=== PATIENT | male | born 1975 | race American Indian/Alaskan Native ===

== ENCOUNTER 2019-09-06 21:31 | Emergency (ER) | payer SELFPAY ==
[2019-09-06] MEDS ORDERED: ACETAMINOPHEN 325 MG/10.15 ML ORAL LIQD UNIT DOSE PO ONE (22:53)
[2019-09-06 23:26] LABS: Basophils # (Auto) 0.1 K/mm3 (0.0-0.1); Basophils % (Auto) 0.5 % (0.0-1.8); Eosinophils # (Auto) 0.1 K/mm3 (0.0-0.4); Eosinophils % (Auto) 1.3 % (0.0-4.3); Hematocrit 46.4 % (35.5-45.6); Hemoglobin 15.2 gm/dl (11.8-15.2); Lymphocytes # (Auto) 0.8 K/mm3 (1.2-5.4); Lymphocytes % (Auto) 7.8 % (13.4-35.0); Mean Corpuscular HGB Conc 33 % (32-34); Mean Corpuscular Volume 86 fl (84-94); Monocytes # (Auto) 1.1 K/mm3 (0.0-0.8); Monocytes % (Auto) 10.8 % (0.0-7.3); Red Blood Count 5.38 M/mm3 (3.65-5.03); Red Cell Distribution Width 17.1 % (13.2-15.2)
[2019-09-06 23:38] LABS: BUN/Creatinine Ratio 8; Blood Urea Nitrogen 9 mg/dL (9-20); Calcium 9.3 mg/dL (8.4-10.2); Hemolysis Index 10
[2019-09-07] MEDS ORDERED: KETOROLAC 30 MG/1 ML INJ IV ONE (00:48)
[2019-09-07 01:01] LABS: Platelet Count 124 K/mm3 (140-440)
--- NOTE | 2019-09-07 01:22 | Cat Scan Report ---
NECK CT 09/07/2019 HISTORY: Difficulty swallowing. Neck swelling. FINDINGS: Contrast enhanced CT images of the soft tissues of the neck were obtained. Images are evalu ated in the axial, coronal, and sagittal planes. There is no evidence of mucosal and lymphoid hyperplasia involving the tonsils, right greater than le ft, and mucosal surfaces of the posterior oropharynx. There is no definite evidence of fluid collecti on or abscess. Moderate thickening of the epiglottis is present. There is no evidence of airway compromise. There is a normal CT appearance to the parotid and submandibular gland region. the thyroid gland is u nremarkable. There is no definite evidence of abnormal adenopathy. There is some lucency along the alveolar ridge of the anterior right mandible, presumably related to prior dental pathology. IMPRESSION: 1. Mucosal thickening, including some thickening of the epiglottis. Tonsillar lymphoid hyperplasia. 2. No evidence of abscess. All CT scans at this location are performed using dose reduction to ALARA by means of automated expos ure control. Signer Name: Toni Diaz MD Signed: 09/07/2019 1:18 AM Workstation Name: [id number]
[2019-09-07] MEDS ORDERED: AMPICILLIN/SULBACTA 3GM/100ML 3 GM/100 ML BAG IV ONE (01:32)
--- NOTE | 2019-09-07 01:37 | Emergency Department Report ---
ED ENT HPI - General Chief complaint: Sore Throat Stated complaint: THROAT PAIN Time Seen by Provider: 09/07/19 00:42 Source: patient Mode of arrival: Ambulatory Limitations: No Limitations - History of Present Illness Initial comments: 44-year-old male with no past medical history presents to the hospital complaining of sore throat that started about 5 PM. Patient was feeling diaphoretic and presents with a fever 101.3. Patient complains of pain with swallowing and a tender lymph node to the right side of his neck. Patient is able to swallow his secretions and denies shortness of breath or difficulty breathing. - Related Data Allergies Allergy/AdvReac Type Severity Reaction Status Date / Time No Known Allergies Allergy Verified 09/06/19 21:34 ED Dental HPI - General Chief complaint: Sore Throat Stated complaint: THROAT PAIN Time Seen by Provider: 09/07/19 00:42 Source: patient Mode of arrival: Ambulatory Limitations: No Limitations - Related Data Allergies Allergy/AdvReac Type Severity Reaction Status Date / Time No Known Allergies Allergy Verified 09/06/19 21:34 ED Review of Systems ROS: Stated complaint: THROAT PAIN Other details as noted in HPI Comment: All other systems reviewed and negative ED Past Medical Hx - Past Medical History Previous Medical History?: No - Surgical History Additional Surgical History: hernia repair - Social History Smoking Status: Current Every Day Smoker Substance Use Type: Alcohol, Cocaine ED Physical Exam - General Limitations: No Limitations - Other Other exam information: General: No acute distress Head: Atraumatic Eyes: normal appearance ENT: Moist mucous membranes, no posterior pharyngeal exudates or edema, uvula midline, poor dentition Neck: Normal appearance, no midline tenderness, right-sided tender lymph node, no stridor Chest: Clear to auscultation bilaterally CV: Regular rate and rhythm Abdomen: Soft, normal bowel sounds, nontender, nondistended, no rebound or guarding Back: Normal inspection Extremity: Normal inspection infection, full range of motion Neuro: Alert O x 3, no facial asymmetry, speech clear, no gross motor sensory deficit Psych: Appropriate behavior Skin: No rash ED Course Vital Signs 09/06/19 09/06/19 09/07/19 21:37 22:45 00:43 Temperature 100.0 F H 101.3 F H Pulse Rate 87 87 Respiratory 18 20 Rate Blood Pressure 142/93 142/93 O2 Sat by Pulse 97 97 95 Oximetry 09/07/19 09/07/19 09/07/19 00:45 01:00 01:15 Temperature Pulse Rate 63 67 71 Respiratory 20 16 17 Rate Blood Pressure 123/80 139/88 139/88 O2 Sat by Pulse 97 98 95 Oximetry 09/07/19 09/07/19 09/07/19 01:31 01:45 02:00 Temperature Pulse Rate 68 67 69 Respiratory 17 16 14 Rate Blood Pressure 139/88 139/88 129/76 O2 Sat by Pulse 96 98 94 Oximetry 09/07/19 02:12 Temperature 99.9 F H Pulse Rate Respiratory Rate Blood Pressure O2 Sat by Pulse Oximetry - Consultations Consultation #1: 09/07/19 01:37 case d/w [facility] for ENT consult 09/07/19 02:12 call placed to [facility], they are on med surg saturation but will still page the ENT doctor. awaiting call back. also awaiting call from [facility] 09/07/19 02:[address] Guo ENT at [facility] for transfer. Will cancel admission request with [facility] ED Medical Decision Making - Lab Data Result diagrams: 09/06/19 23:11 09/06/19 23:11 Lab Results 09/06/19 09/06/19 09/07/19 Range/Units 23:11 23:11 01:40 WBC 9.9 (4.5-11.0) K/mm3 RBC 5.38 H (3.65-5.03) M/mm3 Hgb 15.2 (11.8-15.2) gm/dl Hct 46.4 H (35.5-45.6) % MCV 86 (84-94) fl MCH 28 (28-32) pg MCHC 33 (32-34) % RDW 17.1 H (13.2-15.2) % Plt Count 124 L (140-440) K/mm3 Lymph % (Auto) 7.8 L (13.4-35.0) % [place] % (Auto) 10.8 H (0.0-7.3) % Eos % (Auto) 1.3 (0.0-4.3) % Baso % (Auto) 0.5 (0.0-1.8) % Lymph # 0.8 L (1.2-5.4) K/mm3 [place] # 1.1 H (0.0-0.8) K/mm3 Eos # 0.1 (0.0-0.4) K/mm3 Baso # 0.1 (0.0-0.1) K/mm3 Seg Neutrophils % 79.6 H (40.0-70.0) % Seg Neutrophils # 7.9 H (1.8-7.7) K/mm3 Sodium 142 (137-145) mmol/L Potassium 3.6 (3.6-5.0) mmol/L Chloride 104.3 (98-107) mmol/L Carbon Dioxide 26 (22-30) mmol/L Anion Gap 15 mmol/L BUN 9 (9-20) mg/dL Creatinine 1.1 (0.8-1.5) mg/dL Estimated GFR > 60 ml/min BUN/Creatinine Ratio 8 % Glucose 81 (75-100) mg/dL Calcium 9.3 (8.4-10.2) mg/dL Group A Strep Rapid Negative (Negative) - Radiology Data Radiology results: report reviewed CT neck IV contrast: Mucosa thickening, including some thickening of the epiglottis. Tonsillar lymphoid hyperplasia. No evidence of abscess - Medical Decision Making strep neg labs unremarkable ct suggestive of moderate epoglottitis. Airway patent and patient stable for transfer pt received IV unasyn, tylenol, and iv toradol - Differential Diagnosis pharyngitis, strep throat, laryngitis, epiglottitis Critical Care Time: No Critical care attestation.: If time is entered above; I have spent that time in minutes in the direct care of this critically ill patient, excluding procedure time. ED Disposition Clinical Impression: Epiglottitis Disposition: DC/TX-[id number] ANOTHER TYPE HLTHCARE Is pt being admited?: No Condition: Stable Time of Disposition: 02:28 (Dr Guo ENT at [place])
[2019-09-07 03:21] VITALS: BP 114/67
== END 2019-09-07 03:33 | disposition other institution (70) ==
LOC: ED 21:31
DX: J05.10 Acute epiglottitis without obstruction (principal); F17.200 Nicotine dependence, unspecified, uncomplicated; F14.10 Cocaine abuse, uncomplicated
CPT/HCPCS: 36415; 70491; 80048; 85025; 87116; 87430; 96365; 96375; 99285; J0295; J1885; Q9967